=== PATIENT | female | born 1965 | race Caucasian/White ===

== ENCOUNTER 2021-03-31 18:11 | Emergency (ER) | payer BC, SELFPAY ==
[2021-03-31 18:12] VITALS: BP 161/79; PULSE 88; RESP 15; TEMP 36.6; O2SAT 96; BMI 26.2
--- NOTE | 2021-03-31 18:25 | CT_ITS ---
STUDY: CT FACIAL BONES WITHOUT CONTRAST REASON FOR EXAM: Female, 55 years old. Injury RADIATION DOSAGE (If Supplied By Facility): CTDIvol = ( 29.38 ) mGy, DLP = ( 657.65 ) mGycm TECHNIQUE: The patient was scanned in a multi detector CT scanner. Sagittal and coronal images were reconstructed. Individualized dose optimization techniques were used for this CT. COMPARISON: None. FINDINGS: Normal soft tissue structures. There is a 1 cm nodule anterior to the right side of the mandible. Normal orbital soares and orbital contents. Normal nasal bones and anterior nasal spine. Normal facial bones. There is no demonstrated fracture. Mucosal thickening in the left maxillary sinus. CT/Sinus/Facial Bone IMPRESSION: No acute bony injury of the facial bones. There is a subcutaneous nodule anterior to the mandible. Left maxillary sinus disease. Electronically Signed: Mega Yanes DO at 19:45 EDT Tel [phone], Service support ,
--- NOTE | 2021-03-31 18:27 | EX.ED.GENINJ ---
HPI History of Present Illness Chief Complaint: Fall Informant: patient Narrative Narrative: Presents by EMS from home after a fall off steps. Cleaning soares up 4 steps, there is no railings, she had a mop in her hands, mechanical fall of the steps. She states she did turn, falling down onto plywood. Pain in left shoulder right hand right knee right upper chest wall. Ports had to mop which hit her in the face causing bruising. Denies headache or any loss of conscious. No neck or back pain. Tetanus unknown. No anticoagulation medications. [facility] Medical History (Updated 03/31/21 @ 21:[address] Wes Mcmahan DO) Breast cancer Home Medications diclofenac sodium 75 mg PO BID 03/31/21 [History Last Taken Unknown] docusate sodium [Colace] 100 mg PO DAILY #30 cap 03/31/21 [Rx Last Taken Unknown] ezetimibe 10 mg PO DAILY 03/31/21 [History Last Taken Unknown] oxycodone-acetaminophen [Percocet] 1 tab PO Q6H PRN 3 Days #12 tab 03/31/21 [Rx Last Taken Unknown] Allergy/AdvReac Type Severity Reaction Status Date / Time Sulfa (Sulfonamide Allergy Anaphylaxis Verified 03/31/21 18:15 Antibiotics) Social History Smoking Status: Former smoker ROS ROS ED Constitutional Constitutional ED: Denies chills, fever(s) or sweats Eyes Eyes: Denies change in vision ENT ENT ED: Denies dysphagia or sore throat Cardiovascular Cardiovascular: Reports chest pain; Denies leg edema, palpitations or racing heartbeat Respiratory/Chest Respiratory/Chest: Denies cough, dyspnea or dyspnea on exertion Gastrointestinal Gastrointestinal: Denies abdominal pain, diarrhea, nausea or vomiting Genitourinary Genitourinary ED: Denies dysuria, hematuria or urinary frequency Musculoskeletal Musculoskeletal: Reports other Details: Left shoulder, right hand, right knee pain ; Denies back pain, extremity pain or neck pain Integumentary Denies rash or wounds Neurologic Neurologic: Denies headache(s), paresthesias or weakness EXAM Physical Exam Const Vital Signs: 03/31/21 18:12 Temperature 98 F Temperature Source Oral Pulse Rate 88 Respiratory Rate 15 Blood Pressure 161/79 H Blood Pressure Mean 106 Pulse Ox 96 Oxygen Delivery Method Room Air Positive well nourished and well developed Constitutional Narrative: GCS 15. General Appearance ED: well developed and NAD HEENT Reports moist mucous membranes HEENT Narrative: No hemotympanum, small ecchymosis abrasion right lower orbital, no proptosis or entrapment. There was ecchymosis and swelling to the chin. There is no trismus. No septal hematoma. normocephalic Eyes PERRL, EOMs intact bilaterally and conjunctivae normal General Eye ED: Yes normal appearance of both eyes Neck no lymphadenopathy and supple General: Negative for tenderness Chest Wall Chest Narrative: Mild tenderness right upper chest wall with no crepitus or ecchymosis. Chest: Negative for tenderness Resp normal respiratory effort, normal air movement and clear to auscultation bilaterally Resp Narrative: Symmetric breath sounds. Effort and Inspection: symmetric chest movement; Negative for respiratory distress Cardio regular rate, regular rhythm and no murmurs Peripheral Pulses: pulses 2+ throughout GI normal to inspection, nondistended, normoactive bowel sounds and non-tender Palpation: Negative for guarding or rebound tenderness present Back/Spine no CVA tenderness, normal to inspection and no thoracic nor lumbar tenderness Back/Spine Narrative: No midline tenderness no step-offs. Thoracic Spine / Upper Back: Negative for thoracic spinal tenderness Extremity Extremity Narrative: Right upper extremity: No shoulder or elbow tenderness. There is tenderness at the hypothenar eminence. Skin intact. Left upper extremity: In a sling, no clavicular or AC tenderness. There is tender palpation proximal shoulder with no deformities. No elbow tenderness. Skin intact. Neurovascular intact. Right lower extremity: Negative logroll: There is abrasion at the patellar with mild bony tenderness. No deformities. Negative varus or valgus. Small abrasion anterior aspect of the ankle with no tenderness. No bony tenderness. Skin intact. Neuro vas intact. Left lower extremity: Negative logroll. No bony tenderness. Neuro vas intact distally. General Extremety ED: Yes edema and tenderness General Extremity: edema Neuro oriented x3 and no sensory deficits noted Sensorium / Orientation: awake and alert Skin no rashes or lesions noted and no wounds MDM MDM MDM Narrative Medical decision making narrative: Patient with mechanical fall. Injuries to the face with swelling. CT facial bones was negative. 1 view chest x-ray, 2 view left shoulder, 4 view right knee, 3 view right hand ordered reviewed by myself and read by radiology negative except for right shoulder having a comminuted proximal shoulder fracture. She is placed in a sling and swath. She was initially given fentanyl IM. Symptoms more controlled. Dose of oxycodone prior to being discharged along with prescription. She has seen Ortho in [place]. She will follow-up with them. She is able to ambulate in the ED prior to discharge. Radiography Diagnostic Testing: Radiology Impression Facial/Sinus 03/31/21 18:25 IMPRESSION: No acute bony injury of the facial bones. There is a subcutaneous nodule anterior to the mandible. Left maxillary sinus disease. Electronically Signed: Mega Yanes DO at 19:45 EDT Tel [phone], Service support , Chest X-Ray 03/31/21 18:55 IMPRESSION: Normal x-ray examination of the chest. Electronically Signed: Mega Yanes DO at 19:48 EDT Tel [phone], Service support , Hand X-Ray 03/31/21 18:55 IMPRESSION: Normal x-ray examination of the hand. Electronically Signed: Mega Yanes DO at 19:49 EDT Tel [phone], Service support , Knee X-Ray 03/31/21 18:55 IMPRESSION: Normal x-ray examination of the knee. Electronically Signed: Mega Yanes DO at 19:53 EDT Tel [phone], Service support , Shoulder X-Ray 03/31/21 18:55 IMPRESSION: Comminuted neck fracture of the humerus. Electronically Signed: Mega Yanes DO at 19:56 EDT Tel [phone], Service support , Discharge Plan Triage Chief Complaint: Fall ED Provider: Wes Mcmahan Dx/Rx/DC Orders Clinical Impression: Fracture of left shoulder, Contusion of face, Contusion of hand, right, Abrasion of knee, right, Chest wall contusion Instructions: ED Abrasion, ED Hand Contusion, ED Chest Wall Contusion, ED Fracture, Shoulder Prescriptions: New oxycodone-acetaminophen [Percocet] 5-325 mg tablet 1 tab PO Q6H PRN (Reason: pain) 3 Days Qty: 12 RF: 0 docusate sodium [Colace] 100 mg capsule 100 mg PO DAILY Qty: 30 RF: 0 No Action diclofenac sodium 75 mg tablet,delayed release (DR/EC) 75 mg PO BID RF: 0 ezetimibe 10 mg tablet 10 mg PO DAILY RF: 0 Primary Care Provider: Naseem Mcgill Referrals: Naseem Mcgill MD [Primary Care Provider] - 1 Week Activity Restrictions/Additional Instructions: Left shoulder fracture. Maintain sling and swath follow-up with your orthopedist. CT facial bones negative. X-ray right hand right knee and chest x-ray negative. Disposition Disposition: Home, self care
[2021-03-31] MEDS: fentaNYL 100 MCG/2 ML Ampul 25 MCG IM (18:38)
[2021-03-31] MEDS: Diphth,Pertuss(Acell),Tet Vac 0.5 ML Vial IM (18:41)
--- NOTE | 2021-03-31 18:55 | RAD_ITS ---
STUDY: X-RAY - RIGHT HAND REASON FOR EXAM: Female, 55 years old. Injury TECHNIQUE: 3 view(s) of the hand. COMPARISON: None. FINDINGS: Normal radiocarpal articulation. Normal distal radioulnar joint. Normal visualized carpal bones. Normal carpal articulations Normal carpometacarpal articulation of the thumb. Normal second through fifth carpometacarpal joints. Normal metacarpi. Normal metacarpophalangeal joint of the thumb. Normal interphalangeal joint of the thumb. Normal proximal and distal phalanges of the thumb. Normal metacarpophalangeal joints of the second through fifth fingers. Normal proximal and distal interphalangeal joints of the second through fifth fingers. Normal phalanges of the second through fifth fingers. The soft tissue structures are unremarkable. RAD/Hand Min 3 Views IMPRESSION: Normal x-ray examination of the hand. Electronically Signed: Mega Yanes DO at 19:49 EDT Tel [phone], Service support ,
--- NOTE | 2021-03-31 18:55 | RAD_ITS ---
STUDY: X-RAY - LEFT SHOULDER REASON FOR EXAM: Female, 55 years old. Injury TECHNIQUE: 2 view(s) of the shoulder. COMPARISON: None. FINDINGS: Normal glenohumeral articulation. Normal acromioclavicular joint. Normal acromion. Comminuted fracture at the proximal humerus. The soft tissue structures are unremarkable. Normal visualized pulmonary apex. RAD/Shoulder min 2 Views IMPRESSION: Comminuted neck fracture of the humerus. Electronically Signed: Mega Yanes DO at 19:56 EDT Tel [phone], Service support ,
--- NOTE | 2021-03-31 18:55 | RAD_ITS ---
STUDY: X-RAY - RIGHT KNEE REASON FOR EXAM: Female, 55 years old. Injury TECHNIQUE: 4 view(s) of the knee. COMPARISON: None. FINDINGS: Normal visualized distal femur. Normal visualized proximal tibia and fibula. Normal proximal tibiofibular articulation. Normal medial femorotibial compartment. Normal lateral femorotibial compartment. Normal patellofemoral articulation. The soft tissue structures are unremarkable. RAD/Knee 4 or More Views IMPRESSION: Normal x-ray examination of the knee. Electronically Signed: Mega Yanes DO at 19:53 EDT Tel [phone], Service support ,
--- NOTE | 2021-03-31 18:55 | RAD_ITS ---
STUDY: X-RAY CHEST REASON FOR EXAM: Female, 55 years old. Injury TECHNIQUE: Frontal view COMPARISON: None. FINDINGS: The lungs are clear and expanded. There is no demonstrated pleural abnormality. Normal size heart. Normal mediastinum and mikhail. Normal visualized pulmonary arteries. Normal visualized aortic arch and descending thoracic aorta. Normal visualized thoracic spine. Cervical surgical fusion. Normal visualized ribs, clavicles, and shoulders. There is no demonstrated abnormality of the visualized soft tissue structures of the upper abdomen. RAD/Chest 1 View IMPRESSION: Normal x-ray examination of the chest. Electronically Signed: Mega Yanes DO at 19:48 EDT Tel [phone], Service support ,
[2021-03-31 21:38] VITALS: PULSE 89; RESP 16; O2SAT 98
[2021-03-31] MEDS: oxyCODONE 5 MG Tablet PO (21:40)
== END 2021-03-31 21:41 | disposition home or self-care (01) ==
PROVIDERS: Emergency Provider Emergency Medicine; PCP Family Medicine
DX: S42.92XA Fracture of left shoulder girdle, part unspecified, initial encounter for closed fracture (principal); S00.83XA Contusion of other part of head, initial encounter; S60.221A Contusion of right hand, initial encounter; S80.211A Abrasion, right knee, initial encounter; S20.219A Contusion of unspecified front wall of thorax, initial encounter; W10.9XXA Fall (on) (from) unspecified stairs and steps, initial encounter; Z87.891 Personal history of nicotine dependence; Z79.899 Other long term (current) drug therapy
CPT/HCPCS: 70486; 71045; 73030; 73130; 73564; 90471; 90715; 96372; 99284